=== PATIENT | male | born 1950 | race Caucasian/White ===

== ENCOUNTER 2020-07-10 18:19 | Observation (INO) ==
[2020-07-11] MEDS ORDERED: Naloxone 0.4 MG/ML INJ IVP PRN (03:57)
[2020-07-11 04:25] LABS: Basophils # 0.1 K/mcL (0.0-0.2); Basophils % 1.1 %; Eosinophils # 0.2 K/mcL (0.0-0.6); Eosinophils % 2.9 %; Hematocrit 46.9 % (37.5-50.1); Hemoglobin 15.8 g/dL (12.9-16.9); Lymphocytes # 1.5 K/mcL (0.6-4.6); Lymphocytes % 20.7 %; Mean Corpuscular HGB Conc 33.7 g/dL (31.6-35.5); Mean Corpuscular Hemoglobin 31.1 pg (28.0-33.3); Mean Corpuscular Volume 92.3 fL (83.0-100.0); Mean Platelet Volume 9.5 fL (9.4-12.4); Monocytes # 0.7 K/mcL (0.0-1.3); Monocytes % 9.6 %; Neutrophils # 4.6 K/mcL (1.6-8.9); Platelet Count 237 K/mcL (140-400); Red Blood Count 5.08 M/mcL (4.19-5.50); Red Cell Distribution Width 13.1 % (11.5-14.5); Segmented Neutrophils % 64.7 %; White Blood Count 7.2 K/mcL (4.3-11.1)
[2020-07-11 04:29] LABS: Activated Partial Thrombo Time 31.2 Seconds (26.0-36.0); INR 1.1; Prothrombin Time 12.8 Seconds (9.4-12.1)
[2020-07-11 04:42] LABS: Alanine Aminotransferase 211 Units/L (7-52); Albumin 3.9 g/dL (3.5-5.7); Albumin/Globulin Ratio 1.6 (1.1-2.2); Alkaline Phosphatase 127 Units/L (34-104); Aspartate Amino Transferase 119 Units/L (13-39); BUN/Creatinine Ratio 13 (6-26); Bilirubin,Total 0.6 mg/dL (0.3-1.0); Blood Urea Nitrogen 16 mg/dL (8-23); Calcium 9.4 mg/dL (8.6-10.3); Carbon Dioxide 25 mEq/L (23-29); Chloride 108 mEq/L (98-107); Chol/HDL Ratio 4.2 (0-4.9); Cholesterol 171 mg/dL (< 200); Globulin 2.5 g/dL (2.4-3.5); Glucose 103 mg/dL (70-105); HDL Cholesterol 41 mg/dL (40-59); LDL Cholesterol,Calculated 98 mg/dL (< 100); Magnesium 2.1 mg/dL (1.6-2.6); Osmolality,Calculated 287 (280-300); Potassium 4.1 mEq/L (3.5-5.1); Sodium 138 mEq/L (136-145); Total Protein 6.4 g/dL (6.4-8.9); Triglycerides 162 mg/dL (< 150); Troponin I < 0.03 ng/mL (< 0.04); eGFR For African Americans > 60 (> 60); eGFR For Non-African Americans 59 (> 60)
[2020-07-11] MEDS ORDERED: Regadenoson 0.4 MG/5 ML SYRINGE IVP ONE (08:46)
[2020-07-11] MEDS ORDERED: Pantoprazole 40 MG VIAL IVP SCH (09:00)
[2020-07-11 09:59] LABS: Hepatitis B Surface Antigen Nonreactive (Nonreactive)
[2020-07-11 10:10] LABS: Bilirubin,Urine Negative (Negative); Blood,Urine Negative (Negative); Clarity,Urine Clear (Clear); Color,Urine Yellow (Yellow); Glucose,Urine (UA) Normal (Normal); Ketones,Urine Negative (Negative); Leukocyte Esterase,Urine Negative (Negative); Nitrite,Urine Negative (Negative); PH,Urine 6.5 pH Units (5.0-8.0); Protein,Urine Trace mg/dL (Neg-Trace); Specific Gravity,Urine 1.025 (1.010-1.025); Urobilinogen,Urine Normal (Normal)
[2020-07-11 10:27] LABS: Hepatitis C Virus Antibody Nonreactive (Nonreactive)
[2020-07-11 10:28] LABS: Hepatitis B Core IgM Nonreactive (Nonreactive)
[2020-07-11 10:30] LABS: Hepatitis A Antibody IgM Nonreactive (Nonreactive)
[2020-07-11 11:51] VITALS: BP 133/78
[2020-07-11] MEDS ORDERED: Dolutegravir/Rilpivirine [Juluca 50-25 Mg Tablet] PO SCH (21:00)
== END 2020-07-11 15:30 | disposition home or self-care (01) ==
LOC: 3BNU → SUATTDRO 23:59
PROVIDERS: ADMIT Student in an Organized Health Care Education/Training Program; ATTEND Internal Medicine